=== PATIENT | male | born 1985 ===

== ENCOUNTER 2017-07-31 13:10 | Inpatient (IN) | payer MEDICAID ==
[~2017-07-31] VITALS: Ht 182.9 cm; Wt 81.3 kg
[2017-07-31 15:12] VITALS: BP 118/67
[2017-07-31] MEDS ORDERED: TUBERCULIN, PURIFIED PROTEIN DERIVATIVE 5 TU/0.1 ML SYG ID ONE (15:30)
[2017-07-31] MEDS ORDERED: GuaiFENesin/D-METHORPHAN [SUGAR-FREE] 200-20MG/10 ML SYRUP UDCUP PO PRN (15:30)
[2017-07-31] MEDS ORDERED: MAG HYDROX/AL HYDROX/SIMETH ES 30 ML SUSPENSION UDCUP PO PRN (15:30)
[2017-07-31] MEDS ORDERED: PROMETHAZINE HCL 25 MG TABLET PO PRN (15:30)
[2017-07-31] MEDS ORDERED: HydrOXYzine PAMOATE 50 MG CAPSULE PO PRN (15:30)
[2017-07-31] MEDS ORDERED: ZOLPIDEM TARTRATE 10 MG TABLET PO PRN (15:30)
[2017-07-31] MEDS ORDERED: QUEtiapine FUMARATE 100 MG TABLET PO PRN (15:30)
[2017-07-31] MEDS ORDERED: ACETAMINOPHEN 325 MG TABLET PO PRN (15:30)
[2017-07-31] MEDS ORDERED: LOPERAMIDE HCL 2 MG CAPSULE PO PRN (15:30)
[2017-07-31] MEDS ORDERED: MAGNESIUM HYDROXIDE SUSPENSION 30 ML UDCUP PO PRN (15:30)
[2017-07-31] MEDS ORDERED: ARIP400S3 IM (15:49)
[2017-07-31] MEDS ORDERED: ARIP5TAB8 PO (15:49)
[2017-07-31] MEDS ORDERED: INFLUENZA VIRUS VACCINE QVS 2017-18 (3YR+)/PF 60 MCG/0.5 ML SYRINGE IM ONE (16:00)
[2017-07-31 16:23] VITALS: BP 105/74
[2017-07-31] MEDS: THIAMINE HCL 100 MG TABLET PO SCH (16:49)
[2017-07-31] MEDS ORDERED: QUEtiapine FUMARATE 200 MG TABLET PO SCH (21:00)
[2017-08-01 01:03] VITALS: BP 101/60
[2017-08-01 08:33] LABS: BASOPHILS # (AUTO) 0.04 K/uL (0.00-0.20); BASOPHILS % (AUTO) 0.6 % (0.0-2.0); EOSINOPHILS # (AUTO) 0.67 K/uL (0.00-0.70); EOSINOPHILS % (AUTO) 9.53 % (1.0-6.0); HEMATOCRIT 46.2 % (41-53); HEMOGLOBIN 15.4 g/dL (13.5-17.5); LYMPHOCYTES # (AUTO) 2.3 K/uL (1.0-4.8); LYMPHOCYTES % (AUTO) 33.1 % (22.0-44.0); MEAN CORPUSCULAR HEMOGLOBIN 29.8 pg (26.0-34.0); MEAN CORPUSCULAR HGB CONC 33.4 G/dL (31.0-37.0); MEAN CORPUSCULAR VOLUME 89 fL (80-100); MONOCYTES # (AUTO) 0.5 K/uL (0.1-1.0); MONOCYTES % (AUTO) 7.1 % (2.0-9.0); NEUTROPHILS # (AUTO) 3.5 K/uL (1.8-7.7); NEUTROPHILS % (AUTO) 49.7 % (40.0-70.0); PLATELET COUNT (AUTO) 210 K/uL (150-450); RED BLOOD CELL COUNT(AUTO) 5.18 MIL/uL (4.50-5.90); RED CELL DISTRIBUTION WIDTH 12.9 % (11.5-14.5)
[2017-08-01 08:40] VITALS: BP 113/68
[2017-08-01 09:04] LABS: HEMOGLOBIN A1C 5.4 % (4.5-6.2)
[2017-08-01] MEDS: FOLIC ACID 1 MG TABLET PO SCH (09:14)
[2017-08-01] MEDS: MULTIVITAMINS WITH MINERALS, THERAPEUTIC TABLET PO SCH (09:14)
[2017-08-01] MEDS: THIAMINE HCL 100 MG TABLET PO SCH ×2 (09:15→16:09)
[2017-08-01 09:23] LABS: ALANINE AMINOTRANSFERASE 50 U/L (12-78); ALBUMIN 3.8 g/dL (3.4-5.0); ANION GAP 4 mmol/L (8-16); ASPARTATE AMINOTRANSFERASE 17 U/L (15-37); BILIRUBIN,TOTAL 0.8 mg/dL (0.1-1.0); CALCIUM, TOTAL 8.4 mg/dL (8.8-10.5); CARBON DIOXIDE 30 mmol/L (22-29); CHLORIDE 105 mmol/L (98-107); CHOL/HDL RATIO 3.1 (4.2-7.3); CREATININE 1.08 mg/dL (0.60-1.30); GLOMERULAR FILTR. RATE CALC > 60 mL/min (>60); POTASSIUM 4.3 mmol/L (3.5-5.1); SODIUM SERUM 139 mmol/L (136-145); TOTAL PROTEIN, SERUM 6.5 g/dL (6.4-8.2); UREA NITROGEN, BLOOD 23 mg/dL (7-18)
[2017-08-01] MEDS: LORazepam 2 MG TABLET PO PRN (10:25)
[2017-08-01 16:12] VITALS: BP 117/78
[2017-08-01] MEDS ORDERED: QUEtiapine FUMARATE 300 MG TABLET PO SCH (21:00)
[2017-08-02 00:47] VITALS: BP 102/65
[2017-08-02 08:21] VITALS: BP 104/68
[2017-08-02] MEDS: FOLIC ACID 1 MG TABLET PO SCH (08:39)
[2017-08-02] MEDS: THIAMINE HCL 100 MG TABLET PO SCH ×2 (08:39→16:27)
[2017-08-02] MEDS: MULTIVITAMINS WITH MINERALS, THERAPEUTIC TABLET PO SCH (08:40)
[2017-08-02] MEDS: LORazepam 2 MG TABLET PO PRN (09:54)
[2017-08-02 16:52] VITALS: BP 116/73
[2017-08-02] MEDS: QUEtiapine FUMARATE 200 MG TABLET PO SCH (20:33)
[2017-08-03 00:22] VITALS: BP 102/68
[2017-08-03 08:13] VITALS: BP 115/86
[2017-08-03] MEDS: THIAMINE HCL 100 MG TABLET PO SCH ×2 (08:18→16:44)
[2017-08-03] MEDS: FOLIC ACID 1 MG TABLET PO SCH (08:18)
[2017-08-03] MEDS: MULTIVITAMINS WITH MINERALS, THERAPEUTIC TABLET PO SCH (08:18)
[2017-08-03 18:04] VITALS: BP 120/78
[2017-08-03] MEDS: QUEtiapine FUMARATE 200 MG TABLET PO SCH (20:44)
[2017-08-04 00:52] VITALS: BP 130/80
[2017-08-04] MEDS: THIAMINE HCL 100 MG TABLET PO SCH (08:04)
[2017-08-04] MEDS: MULTIVITAMINS WITH MINERALS, THERAPEUTIC TABLET PO SCH (08:04)
[2017-08-04] MEDS: FOLIC ACID 1 MG TABLET PO SCH (08:04)
[2017-08-04 08:34] VITALS: BP 121/78
[2017-08-04] MEDS ORDERED: QUET200T PO (10:11)
== END 2017-08-04 13:15 | disposition home or self-care (01) | DRG 750 ==
LOC: B2S 15:42
PROVIDERS: ADMIT Psychiatry & Neurology Psychiatry; ATTEND Psychiatry & Neurology Psychiatry
DX: F20.0 Paranoid schizophrenia (principal); Z91.19 Patient's noncompliance with other medical treatment and regimen; J44.9 Chronic obstructive pulmonary disease, unspecified; F17.210 Nicotine dependence, cigarettes, uncomplicated; Z88.8 Allergy status to other drugs, medicaments and biological substances
CPT/HCPCS: 83036; 84439; 84443; 86592; 90471